=== PATIENT | female | born 1950 | race Caucasian/White ===

== ENCOUNTER 2018-07-31 04:26 | Emergency (ER) | payer MEDICARE, BC ==
--- NOTE | 2018-07-31 04:34 | Emergency Department Record ---
History of Present Illness - General Chief Complaint: Palpitations Stated Complaint: HEART IS RACING Time Seen by Provider: 07/31/18 04:28 Source: Patient Mode of Arrival: Ambulatory Limitations: No limitations - History of Present Illness Initial Comments: 68 yo female presents with a feeling of palpitations like her heart was racing around 1am. She has a history of atrial fibrillation several years ago. The feeling was similar. The symptoms have resolved. She is currently asymptomatic. She states recently she has been having some occasionally ache in the right shoulder as well. No cough, no shortness of breath. No pain with deep inspiration. No underlying CAD. She is not a smoker. No recent other sudden health changes. She has been active without limitation. No exertion related symptoms. She had a cardiac work up in [address] Velez is her PCP. 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 In the past caffeine was a aggravating factor. She does admit to about 5 cups of caffeinated coffee daily. MD Complaint: Palpitations -: Hour(s) Context: Awoke with symptoms Arrythmia History: Atrial fibrillation Associated Symptoms: Other - Related Data Allergies Allergy/AdvReac Type Severity Reaction Status Date / Time celecoxib [From Celebrex] Allergy DIFFICULTY Verified 05/04/15 17:41 BREATHING diclofenac Allergy DIFFICULTY Verified 05/04/15 17:41 BREATHING erythromycin base Allergy NAUSEA Verified 05/04/15 17:41 etodolac Allergy HIVES Verified 05/04/15 17:41 hydromorphone HCl Allergy HIVES Verified 05/04/15 17:41 [From Dilaudid] Review of Systems Constitutional: Denies: Chills, Fever, Malaise, Weakness Eyes: Denies: Eye discharge ENT: Denies: Congestion, Throat pain Respiratory: Denies: Cough, Dyspnea Cardiovascular: Reports: Arrhythmia (Hx of atrial fibrillation), Palpitations. Denies: Edema, Syncope Endocrine: Denies: Polydipsia, Polyuria Genitourinary: Denies: Dysuria, Urgency Musculoskeletal: Denies: Arthralgia, Back pain, Myalgia Skin: Denies: Bruising, Change in color, Rash Neurological: Denies: Headache, Vertigo Psychiatric: Denies: Anxiety Hematological/Lymphatic: Denies: Blood Clots, Easy bleeding, Easy bruising Past Medical History - SOCIAL HISTORY Smoking Status: Former smoker - RESPIRATORY Hx Respiratory Disorders: No - CARDIOVASCULAR Hx Cardio Disorders: Yes Hx Irregular Heartbeat: Yes (afib) - NEURO Hx Neuro Disorders: No - GI Hx GI Disorders: No - Hx Genitourinary Disorders: No - ENDOCRINE Hx Endocrine Disorders: No - MUSCULOSKELETAL Hx Musculoskeletal Disorders: Yes Hx Arthritis: Yes (RA) - PSYCH Hx Psych Problems: No - HEMATOLOGY/ONCOLOGY Hx Hematology/Oncology Disorders: No Family Medical History Hx Cancer: Mother Hx Heart Disease: Father, Mother Physical Exam - General General Appearance: Alert, Oriented x3, Cooperative, No acute distress Limitations: No limitations - Head Head exam: Atraumatic, Normal inspection - Eye Eye exam: Normal appearance. negative: Conjunctival injection - ENT ENT exam: Normal exam Ear exam: Normal external inspection Nasal Exam: Normal inspection Mouth exam: Normal external inspection - Neck Neck exam: Normal inspection. negative: Lymphadenopathy, Thyromegaly - Respiratory Respiratory exam: Normal lung sounds bilaterally. negative: Accessory muscle use, Decreased breath sounds, Prolonged expiratory, Respiratory distress, Rhonchi, Stridor, Wheezes - Cardiovascular Cardiovascular Exam: Regular rate, Normal rhythm, Normal heart sounds. negative : Diastolic murmur, Systolic murmur Peripheral Pulses: 2+: Radial (R), Radial (L) - GI/Abdominal GI/Abdominal exam: Soft. negative: Tenderness - Rectal Rectal exam: Deferred - exam: Deferred - Extremities Extremities exam: Normal inspection. negative: Pedal edema - Back Back exam: Denies: CVA tenderness (R), CVA tenderness (L) - Neurological Neurological exam: Alert, Normal gait, Oriented X3. negative: Abnormal gait, Altered - Psychiatric Psychiatric exam: Normal affect, Normal mood. negative: Agitated, Anxious - Skin Skin exam: Dry, Intact, Normal color, Warm Course - Reevaluation(s) Reevaluation #1: 07/31/18 04:31 EKG #1: 04:30 Rate: 67 Rhythm: sinus [place]: normal Intervals: normal ST segments: normal artifact noted in multiple leads, otherwise normal EKG Prior: 05/04/15, no changes. 07/31/18 05:03 The CBC and the BMP were reviewed. No acute changes. 07/31/18 05:10 Normal TSH and Troponin 07/31/18 05:47 The patient remains asymptomatic. She remains in normal sinus rhythm without ectopy. The plan is for continued monitoring and repeat enzymes at 8am 07/31/18 06:38 The patient noted the feeling that brought her into the ED. On the monitor she did have two separate isolated PVCs. No runs, no afib, no tachycardia. Medical Decision Making - Lab Data Result diagrams: 07/31/18 04:36 07/31/18 04:36 Disposition Disposition: Discharge Clinical Impression: Palpitations, PVC (premature ventricular contraction) Disposition: Home, Self-Care Condition: (1) Good Instructions: Heart Palpitations (ED) Additional Instructions: Call your doctor for the next available follow up appointment You have been referred to cardiology for outpatient follow up for the feeling of rapid heart rate you experienced Return to the ER for a recheck if worse, any new concerns or questions Review this ER visit and the tests performed with your family doctor Avoid caffeine Referrals: MELISSA NELSON M.D. [MEDICAL DOCTOR] - [facility] [Provider Group] Forms: Patient Portal Access Quality - Quality Measures Quality Measures: N/A - Blood Pressure Screening Does Patient Have Any of the Following: No Blood Pressure Classification: Hypertensive Reading Systolic Measurement: 162 Diastolic Measurement: 79 Screening for High Blood Pressure: < Pre-Hypertensive BP, F/U Documented > [ [id number]] Pre-Hypertensive Follow-up Interventions: Referral to alternative/primary care provider.
[2018-07-31 04:44] LABS: BASO % 0.5 % (0-6); GRAN % 56.9 % (47-80); HEMATOCRIT 41.2 % (35.0-47.0); HEMOGLOBIN 13.9 gm/dl (11.6-16.0); LYMPH % 29.4 % (16-45); MEAN CELL VOLUME 85.7 fl (81-97); MEAN CORPUSCULAR HEMOGLOBIN 28.9 pg (27-33); MEAN CORPUSCULAR HGB CONC 33.7 g/dl (32-36); MEAN PLATELET VOLUME 9.7 fl (7.4-10.4); MONO % 10.2 % (0-9); PLATELET COUNT 217 K/uL (130-400); RED BLOOD COUNT 4.81 M/uL (3.80-5.40); RED CELL DISTRIBUTION WIDTH 12.8 % (11.5-14.5); WHITE BLOOD COUNT W/O DIFF 6.3 K/uL (4.2-12.2)
[2018-07-31 04:52] LABS: PARTIAL THROMBOPLASTIN TIME 27.6 SECONDS (24.5-39.1)
[2018-07-31 04:53] LABS: BLOOD UREA NITROGEN 27 mg/dL (8-23)
[2018-07-31 04:54] LABS: CREATININE 0.7 mg/dL (0.5-0.9); EST GLOMERULAR FILTRATION RATE > 60 mL/min
[2018-07-31 04:56] LABS: GLUCOSE,RANDOM 131 mg/dL (74-109)
[2018-07-31 05:09] LABS: THYROID STIMULATING HORMONE 3.49 uIU/mL (0.270-4.20)
== END 2018-07-31 09:22 | disposition home or self-care (01) ==
LOC: ER 04:26
DX: I49.3 Ventricular premature depolarization (principal); I48.91 Unspecified atrial fibrillation; Z87.891 Personal history of nicotine dependence
CPT/HCPCS: 80048; 84443; 84484; 85025; 85610; 85730; 93005; 93010; 99284